=== PATIENT | female | born 1980 | race Asian ===

== ENCOUNTER 2020-10-04 10:58 | Outpatient (CLI) | payer BC | END 2020-10-04 10:59 | disposition home or self-care (01) | LOC: CSHMAMMO 10:58 | PROVIDERS: ATTEND Family Medicine | DX: Z12.31 Encounter for screening mammogram for malignant neoplasm of breast (principal) | CPT/HCPCS: 77063; 77067 ==

== ENCOUNTER 2022-11-17 08:06 | Outpatient (CLI) | payer BC | END 2022-11-17 08:07 | disposition home or self-care (01) | LOC: CSHMAMMO 08:06 | PROVIDERS: ATTEND Family Medicine | DX: Z12.31 Encounter for screening mammogram for malignant neoplasm of breast (principal) | CPT/HCPCS: 77063; 77067 ==

== ENCOUNTER 2023-12-02 07:49 | Outpatient (CLI) | payer BC | END 2023-12-02 07:50 | disposition home or self-care (01) | LOC: CSHMAMMO 07:49 | PROVIDERS: ATTEND Family Medicine | DX: Z12.31 Encounter for screening mammogram for malignant neoplasm of breast (principal) | CPT/HCPCS: 77063; 77067 ==